=== PATIENT | male | born 1980 | race Caucasian/White ===

== ENCOUNTER 2021-12-21 09:12 | Emergency (ER) | payer OTHER | END 2021-12-21 10:12 | disposition home or self-care (01) | LOC: FER 09:12 | DX: H15.89 Other disorders of sclera (principal); W20.8XXA Other cause of strike by thrown, projected or falling object, initial encounter; Y93.89 Activity, other specified | CPT/HCPCS: 99283 ==

== ENCOUNTER 2022-02-04 05:53 | Emergency (ER) | payer OTHER ==
[2022-02-04 06:49] LABS: BASOPHIL 0.6 % (0-2); EOSINOPHIL 3.4 % (0-5); HGB 14.2 g/dl (13.2-18.0); LYMPHOCYTE 29.8 % (15-48); MCH 29.1 pg (25.0-31.0); MCV 88.1 fL (78.0-100.0); MONOCYTE 8.8 % (0-12); MPV 9.8 fL (6.0-9.5); NEUTROPHIL 56.8 % (41-80); NRBC 0; PLT 260 K/uL (150-400); RBC 4.88 M/uL (4.70-6.00); WBC 7.7 K/uL (4.0-10.5)
[2022-02-04 07:24] LABS: ALBUMIN 3.9 g/dL (3.4-5.0); BILIRUBIN - TOTAL 0.2 mg/dL (0.2-1.0); BUN/CREAT RATIO (CALC) 14.9 RATIO; CREATININE 1.01 mg/dL (0.67-1.17); POTASSIUM 3.8 mmol/L (3.5-5.1); TOTAL PROTEIN 6.9 g/dL (6.4-8.2)
[2022-02-04 08:05] LABS: BILIRUBIN NEGATIVE (NEGATIVE); BLOOD 3+ Ery/uL (NEGATIVE); CLARITY HAZY (CLEAR); COLOR YELLOW (YELLOW); GLUCOSE (U) NORMAL (NORMAL); LEUKOCYTES NEGATIVE Leu/uL (NEGATIVE); NITRITE NEGATIVE (NEGATIVE); PROTEIN TRACE (LOW) mg/dL (NEGATIVE); SPECIFIC GRAVITY >=1.030 (1.001-1.030); UROBILINOGEN 0.2 mg/dL (0.2-1.0)
[2022-02-04 08:31] LABS: BACTERIA TRACE; URINARY RBC 20-50; URINARY WBC RARE
== END 2022-02-04 08:28 | disposition home or self-care (01) ==
LOC: FER 05:53
PROVIDERS: Internal Medicine
DX: N28.89 Other specified disorders of kidney and ureter (principal); R31.0 Gross hematuria; F17.210 Nicotine dependence, cigarettes, uncomplicated; Z88.0 Allergy status to penicillin; Z28.310 Unvaccinated for COVID-19
CPT/HCPCS: 36415; 80053; 81001; 84145; 85025; J7030